=== PATIENT | female | born 1960 | race Caucasian/White ===

== ENCOUNTER 2018-12-17 14:39 | Outpatient (CLI) | payer BC ==
--- NOTE | 2018-12-17 15:48 | MRI ---
MRI cervical spine. HISTORY: Bilateral upper extremity pain and triceps weakness. M54.12. Multiplanar multisequence noncontrast enhanced MRI images cervical spine obtained. Radiographic findings: C1-2, C2-3: Unremarkable. C3-4: There is a central disc protrusion with slight upward migration of the protruded disc material into the anterior epidural space. The neural foramen are patent. C4-5: There is disc desiccation. There is a broad-based disc osteophyte complex centrally compressing the thecal thecal sac resulting in a moderate degree of thecal sac compression. Mild cord compression seen. There is moderate bilateral C4-5 neural foraminal narrowing due to uncovertebral os teophyte hypertrophy. C5-6: There is disc desiccation. There is central disc osteophyte complex at C5-6 compressing the the janie sac resulting in moderate severe thecal sac compression and moderate cord compression. There is moderate severe right and moderate left-sided neural foraminal narrowing due to uncovertebral osteoph yte hypertrophy. C6-7: Disc desiccation seen. There is a broad-based central disc osteophyte complex centrally aubrey sing the thecal sac resulting in moderate compression of the thecal sac. No evidence of cord compression seen. The neural foramen are patent. An intraosseous hemangioma seen in the C7 vertebral level. C7-T1: The central canal is patent. The right neural foramen is patent. There is mild to moderate lef t C7-T1 neural foraminal narrowing due to osteophyte encroachment. Impression: 1. Disc protrusion with small central extrusion at C3-4. 2: Multilevel broad-based disc osteophyte complexes with central and neural foraminal narrowing at C4 -5, C5-6 and C6-7. Transcribed Date/Time: 12/17/2018 4:00 PM
== END 2018-12-17 14:40 | disposition home or self-care (01) ==
LOC: SCSMRI 14:39
PROVIDERS: ATTEND Orthopaedic Surgery
DX: M50.11 Cervical disc disorder with radiculopathy, high cervical region (principal); M48.02 Spinal stenosis, cervical region
CPT/HCPCS: 72141

== ENCOUNTER 2019-12-09 07:55 | Outpatient (CLI) | payer BC ==
--- NOTE | 2019-12-09 10:59 | MRI ---
MRI OF LEFT WRIST: DATE: 12/09/2019. PROVIDED CLINICAL HISTORY: Left wrist pain. FINDINGS: There is noncircumscribed fluid signal intensity within the subcutaneous adipose layer at the radial aspect of the distal radius superficial to the 1st and 2nd dorsal extensor compartment tendons. Ther e is greater than physiologic fluid about the 1st dorsal extensor compartment tendons as well as the mildly enlarged and inhomogeneous appearance to the abductor pollicis longus tendon at the level of t he radiocarpal joint. The dorsal extensor and volar flexor tendons demonstrate an otherwise intact/n ormal MR appearance. There is signal inhomogeneity involving the central, membranous portion of the scapholunate ligament, which could reflect tear. The scapholunate and lunotriquetral ligaments as well as TFC complex are suboptimally evaluated in the absence of joint distension but appear otherwise grossly normal. The amount of fluid within the mid carpal, radiocarpal, and distal radial ulnar joints appear physiol ogic. Alignment appears anatomic. Joint spaces appear preserved. No focal concerning regional francois ow or muscular signal abnormality apparent. Degenerative changes are noted at the 1st CMC joint. The courses of the regional major neurovascular structures appear unremarkable. IMPRESSION: 1. Mild 1st dorsal extensor compartment tenosynovial fluid that may reflect tenosynovitis. Low-grad e partial-thickness interstitial tearing involving the abductor pollicis longus tendon at the level o f the radiocarpal joint. 2. Bruising or edema within the overlying subcutaneous adipose layer. 3. Possible partial tearing involving the central, membranous portion of the scapholunate ligament. POS: [facility]
== END 2019-12-09 07:56 | disposition home or self-care (01) ==
LOC: SCSMRI 07:55
PROVIDERS: ATTEND Orthopaedic Surgery
DX: M25.532 Pain in left wrist (principal); S66.912A Strain of unspecified muscle, fascia and tendon at wrist and hand level, left hand, initial encounter

== ENCOUNTER 2020-09-14 06:55 | Day surgery (SDC) | payer BC ==
[2020-09-13 13:35] VITALS: BMI 32.3
[2020-09-14] MEDS ORDERED: FLU VACC QS2020-21(6MOS UP)/PF 60 MCG/0.5 ML SYRINGE IM ONE (09:00)
[2020-09-14 09:23] VITALS: BP 178/95; TEMP 98.7
[2020-09-14] MEDS ORDERED: Iopamidol-M 300 61% 15 ML VIAL ONE (11:09)
== END 2020-09-14 10:35 | disposition home or self-care (01) ==
LOC: RAD 06:55
PROVIDERS: ATTEND Physician Assistant
PROC: B02B1ZZ Computerized Tomography (CT Scan) of Spinal Cord using Low Osmolar Contrast (ICD-10-PCS; principal; 2020-09-14)
DX: M50.123 Cervical disc disorder at C6-C7 level with radiculopathy (principal); M51.24 Other intervertebral disc displacement, thoracic region; M48.04 Spinal stenosis, thoracic region; M51.36 Other intervertebral disc degeneration, lumbar region; I10 Essential (primary) hypertension; I48.91 Unspecified atrial fibrillation; M19.90 Unspecified osteoarthritis, unspecified site; E03.9 Hypothyroidism, unspecified; Z88.0 Allergy status to penicillin; Z88.8 Allergy status to other drugs, medicaments and biological substances; Z98.1 Arthrodesis status
CPT/HCPCS: 62302; 72126; 90471; 90662; G0008; Q9967

== ENCOUNTER 2022-08-01 09:29 | Outpatient (CLI) | payer BC | END 2022-08-01 09:30 | disposition home or self-care (01) | LOC: SCSMRI 09:29 | PROVIDERS: ATTEND Orthopaedic Surgery | DX: S76.212A Strain of adductor muscle, fascia and tendon of left thigh, initial encounter (principal); M77.9 Enthesopathy, unspecified; S43.432A Superior glenoid labrum lesion of left shoulder, initial encounter ==

== ENCOUNTER 2022-08-23 15:03 | Outpatient (CLI) | payer BC | END 2022-08-23 15:04 | disposition home or self-care (01) | LOC: SCSMRI 15:03 | PROVIDERS: ATTEND Orthopaedic Surgery | DX: M47.26 Other spondylosis with radiculopathy, lumbar region (principal); M25.78 Osteophyte, vertebrae; M51.16 Intervertebral disc disorders with radiculopathy, lumbar region; M48.062 Spinal stenosis, lumbar region with neurogenic claudication; M51.17 Intervertebral disc disorders with radiculopathy, lumbosacral region; M48.07 Spinal stenosis, lumbosacral region; M47.817 Spondylosis without myelopathy or radiculopathy, lumbosacral region; Z98.890 Other specified postprocedural states | CPT/HCPCS: 72148 ==

== ENCOUNTER 2023-08-01 08:41 | Outpatient (CLI) | payer BC | END 2023-08-01 08:42 | disposition home or self-care (01) | LOC: SCSMRI 08:41 | PROVIDERS: ATTEND Orthopaedic Surgery | DX: M25.552 Pain in left hip (principal); S76.012A Strain of muscle, fascia and tendon of left hip, initial encounter; M62.58 Muscle wasting and atrophy, not elsewhere classified, other site; M25.452 Effusion, left hip ==

== ENCOUNTER 2024-08-12 14:03 | Outpatient (CLI) | payer MEDICARE | END 2024-08-12 14:04 | disposition home or self-care (01) | LOC: SCSRAD 14:03 | PROVIDERS: ATTEND Family Medicine | DX: M79.642 Pain in left hand (principal); M18.12 Unilateral primary osteoarthritis of first carpometacarpal joint, left hand ==

== ENCOUNTER 2025-03-03 14:49 | Outpatient (CLI) | payer MEDICARE | END 2025-03-03 14:50 | disposition home or self-care (01) | LOC: SCSRAD 14:49 | PROVIDERS: ATTEND Family Medicine | DX: R10.9 Unspecified abdominal pain (principal); E83.59 Other disorders of calcium metabolism; N29 Other disorders of kidney and ureter in diseases classified elsewhere | CPT/HCPCS: 74018 ==

== ENCOUNTER 2025-05-06 09:39 | Outpatient (CLI) | payer MEDICARE ==
[2025-05-06 11:34] LABS: #Basophils 0.09 10x3/uL (0.0-0.2); #Eosinophils 0.44 10x3/uL (0.0-0.7); #Monocytes 0.62 10x3/uL (0.11-0.59); #Neutrophils 4.38 10x3/uL (1.40-6.50); %Basophils 1.1 % (0.0-1.0); %Eosinophils 5.6 % (0.0-10.0); %Lymphocytes 29.4 % (21.0-51.0); %Monocytes 7.9 % (0.0-10.0); %Neutrophils 55.7 % (42.0-75.0); Hematocrit 42.0 % (36.0-47.0); Hemoglobin 13.3 g/dL (12.0-16.0); Mean Corpuscular Hemoglobin 28.6 pg (27.0-31.0); Mean Corpuscular Volume 90.3 fL (78.0-98.0); Platelet Count 288 10x3/uL (130-400); Red Blood Cell (RBC) Count 4.65 mill/uL (4.20-5.40); White Blood Cell (WBC) Count 7.86 10x3/uL (4.8-10.8)
[2025-05-06 11:56] LABS: Anion Gap 13 mmol/L (10-20); BUN (Urea Nitrogen) 21 mg/dL (9.8-20.1); Calc. Creatinine Clearance 0 mL/min (70-130); Calcium 9.7 mg/dL (7.8-10.44); Carbon Dioxide 28 mmol/L (23-31); Chloride 105 mmol/L (98-107); Glucose 118 mg/dL (80-115); Potassium 4.5 mmol/L (3.5-5.1); Sodium 141 mmol/L (136-145)
== END 2025-05-06 09:40 | disposition home or self-care (01) ==
LOC: LABBT 09:39
PROVIDERS: ATTEND Orthopaedic Surgery Hand Surgery
DX: Z01.812 Encounter for preprocedural laboratory examination (principal); S62.112A Displaced fracture of triquetrum [cuneiform] bone, left wrist, initial encounter for closed fracture; S63.592A Other specified sprain of left wrist, initial encounter; M19.032 Primary osteoarthritis, left wrist
CPT/HCPCS: 80048; 85025

== ENCOUNTER 2025-05-10 10:58 | Observation (INO) | payer MEDICARE ==
[2025-05-06 10:00] VITALS: BMI 33.0
[2025-05-10] MEDS ORDERED: Ropivacaine 0.5% HCl/PF (150 MG/30 ML VIAL) ONE (11:16)
[2025-05-10] MEDS ORDERED: Ropivacaine 0.2% 550 ML 550 ML NERVE BLCK SCH (12:15)
[2025-05-10] MEDS ORDERED: Ondansetron PF 4 MG/2 ML Vial IVP PRN (12:15)
[2025-05-10] MEDS ORDERED: HYDROcodone/Acetaminophen 10/325 mg Tablet PO PRN ×2 (12:15)
[2025-05-10] MEDS ORDERED: CEFAZOLIN 2 GM VIAL ONE (12:59)
[2025-05-10] MEDS ORDERED: Rocuronium Bromide 10 MG/ML (10ML VIAL) ONE (13:29)
[2025-05-10] MEDS ORDERED: Ropivacaine 2% HCl/PF (20 MG/10 ML VIAL) ONE (13:29)
[2025-05-10] MEDS ORDERED: Ondansetron PF 4 MG/2 ML Vial ONE (13:29)
[2025-05-10] MEDS ORDERED: PROPOFOL 200 MG/20 ML VIAL ONE (13:29)
[2025-05-10] MEDS ORDERED: SUGAMMADEX SODIUM 200 MG/2 ML VIAL ONE (17:25)
[2025-05-10] MEDS ORDERED: Bacitracin Zinc Ointment 30 gm TUBE ONE (17:50)
[2025-05-10] MEDS: Ketorolac Tromethamine 30 MG (1 mL) VIAL IVP SCH (18:00)
[2025-05-10] MEDS ORDERED: Acetaminophen 325 MG TAB PO PRN (18:57)
[2025-05-10] MEDS ORDERED: Communication Order-Pharmacy FS SCH (19:00)
[2025-05-10] MEDS ORDERED: Ketorolac Tromethamine 30 MG (1 mL) VIAL IVP PRN (19:05)
[2025-05-10] MEDS ORDERED: Meperidine HCl/PF 25 MG (1 mL) VIAL IM PRN (19:05)
[2025-05-10] MEDS ORDERED: Vancomycin 1 GM in Premix 1 BAG IVPB SCH (19:15)
[2025-05-10] MEDS: Vancomycin 1 GM Premix Bag IVPB SCH (21:35)
[2025-05-10] MEDS: Aspirin 81 mg Enteric Coated Tablet PO SCH (21:36)
[2025-05-10] MEDS: Gabapentin 300 MG CAP PO SCH (21:36)
[2025-05-11] MEDS: Pantoprazole 40 MG DR.TAB PO SCH (08:49)
[2025-05-11] MEDS: Losartan 25 MG TAB PO SCH (08:49)
[2025-05-11] MEDS: Gabapentin 300 MG CAP PO SCH (08:49)
[2025-05-11] MEDS: Multivitamin W/ Minerals 1 TAB PO SCH (08:50)
[2025-05-11] MEDS: Acetaminophen/Codeine 30-300mg Tablet PO PRN (11:20)
[2025-05-11 11:30] VITALS: BP 146/73; TEMP 98.8
[2025-05-11] MEDS ORDERED: TETANUS, DIPHTHERIA TOX,ADULT (TDVAX) 0.5 ML VIAL IM ONE (18:57)
== END 2025-05-11 15:00 | disposition home or self-care (01) ==
LOC: SDC 10:58 → SURG A 18:57
PROVIDERS: ADMIT Orthopaedic Surgery Hand Surgery; ATTEND Orthopaedic Surgery Hand Surgery
PROC: 0RGP0KZ Fusion of Left Wrist Joint with Nonautologous Tissue Substitute, Open Approach (ICD-10-PCS; principal; 2025-05-10)
DX: M19.032 Primary osteoarthritis, left wrist (principal); S63.592A Other specified sprain of left wrist, initial encounter; T14.8XXA Other injury of unspecified body region, initial encounter; S62.112A Displaced fracture of triquetrum [cuneiform] bone, left wrist, initial encounter for closed fracture; E03.9 Hypothyroidism, unspecified; I10 Essential (primary) hypertension; Z79.890 Hormone replacement therapy; Z79.899 Other long term (current) drug therapy; W01.0XXA Fall on same level from slipping, tripping and stumbling without subsequent striking against object, initial encounter; Z88.1 Allergy status to other antibiotic agents; Z91.041 Radiographic dye allergy status; Z88.8 Allergy status to other drugs, medicaments and biological substances
CPT/HCPCS: 25210; 25390; 25825; 29846; 73100; A4306; A6223; C1713 ×3; C1889; C1894; J0169; J1100; J1885; J2250; J2270; J2405; J2704; J2795 ×3; J3010; J3373; J7030

== ENCOUNTER 2025-06-08 08:26 | Outpatient (CLI) | payer MEDICARE | END 2025-06-08 08:27 | disposition home or self-care (01) | LOC: SCSULT 08:26 | PROVIDERS: ATTEND Otolaryngology | DX: E04.2 Nontoxic multinodular goiter (principal) | CPT/HCPCS: 76536 ==